=== PATIENT | male | born 1965 | race Caucasian/White ===

== ENCOUNTER → 2017-06-16 06:50 | Day surgery (SDC) | payer BC ==
[~2017-06-16 06:50] MED LIST: Atracurium* 10 MG/ML 10 ML VIAL ONE; Buffered Lidocaine 0.9% SYRIN* 5 ML/SYR SYRINGE INTRADERM ONE; Buffered Lidocaine 0.9% SYRIN* 5 ML/SYR SYRINGE ONE; Bupivacaine 0.5% SDV PF* 30 ML VIAL ONE; EPINEPHrine AMP 1 MG/ML ONE; Famotidine IV* 10 MG/ML 2 ML (20 mg) IV ONE; Famotidine IV* 10 MG/ML 2 ML (20 mg) ONE; KETAMINE HCL* 50 MG/ML 10 ML VIAL ONE; Lidocaine 2% PF * 5 ML VIAL ONE; Metoprolol Tartrate IV* 1 MG/ML 5 ML VIAL ONE; Midazolam* 1 MG/ML 10 ML VIAL (10 MG) ONE; Morphine INJ* 2 MG/ML 1 ML CARPUJECT IV PRN; Ondansetron INJ* 2 MG/ML VIAL ONE; PROCHLORPERAZINE INJ 5 MG/ML 2 ML VIAL IV PRN; PROCHLORPERAZINE INJ 5 MG/ML 2 ML VIAL ONE; Phenylephrine INJ* 10 MG/ML 1 ML VIAL (10 MG) ONE; Propofol* 10 MG/ML 20 ML BTL IV PUSH ONE; Scopolamine 1.5 mg* PATCH TRANSDERM PRN; Scopolomine PATCH Remove* 1 NOTE MISC PATCH OFF ONE; ceFAZolin 2 GM PREMIX (*) 50 ML IVPB ONE; fentaNYL* 50 MCG/ML 2 ML VIAL (100 MCG VIAL) IV PRN; fentaNYL* 50 MCG/ML 2 ML VIAL (100 MCG VIAL) ONE; oxyCODONE/Acetamin 5/325 MG* TAB PO PRN
[2017-06-16 15:03] VITALS: BP 107/82
--- NOTE | 2017-06-18 04:59 | OP ---
DATE OF OPERATION: 06/16/17 [facility] DATE OF : 67 SURGEON: Raffi Mcnair MD DARKLIGHT INSPECTOR: LATRICAI Hager. A physician medical office receptionist assistant was required during the length of the procedure for instrumentation. ANESTHESIOLOGIST: Dr. Alvino Jack. ANESTHESIA: General endotracheal anesthesia, regional interscalene block anesthesia. PRE-OP DIAGNOSES: 1. Left shoulder partial thickness rotator cuff tear, supraspinatus, high grade versus moderate grade, under-sided. 2. Left shoulder subacromial impingement and bursitis. 3. Left shoulder acromioclavicular joint arthritis. POST-OP DIAGNOSES: 1. Left shoulder partial thickness rotator cuff tear, supraspinatus, high grade , under-sided. 2. Left shoulder subacromial impingement and bursitis. 3. Left shoulder acromioclavicular joint arthritis. 4. No left shoulder biceps tendinosis or unstable labral tear, superior. OPERATIVE PROCEDURE: 1. Left shoulder arthroscopic rotator cuff repair, supraspinatus. 2. Left shoulder arthroscopic subacromial decompression. 3. Left shoulder arthroscopic distal clavicle resection. ANTIBIOSIS: 2 g Ancef IV. IV FLUIDS: 1300 cc crystalloid. COMPLICATIONS: None. ESTIMATED BLOOD LOSS: Minimal. SPECIMEN: None. IMPLANTS: Mitek Healix triple-loaded 5.5 mm rotator cuff anchor x1. Healix knotless 5.5 mm suture anchor x1. 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 The patient responded insufficiently to nonoperative management and opted for surgery. Prior to surgery, discussed evaluation and treatment of the rotator cuff tendon , supraspinatus with repair to be a more likely then simple debridement. I did not add it to the surgical consent, but briefly discussed in clinic that, as is the case with every shoulder arthroscopy, I would carefully examine the biceps tendon and superior labrum intraoperatively. On the date of surgery, we discussed this and the patient stated that he would prefer a tenodesis should the biceps need to be treated. I therefore added to the surgical consent evaluation and treatment of the biceps tendon with a tenodesis if treatment were to be performed. Discussed risks and complications of procedure including bleeding, infection, nerve or blood vessel injury, rotator cuff retear, shoulder stiffness. DESCRIPTION OF PROCEDURE: Surgical consent was signed in preoperative holding. Operative extremities marked in preoperative holding. Interscalene block was performed in preoperative holding by anesthesiologist. The patient was placed in the lateral decubitus position on operating room table. Anesthesiologist had hoped for laryngeal mask airway placement, but the patient vomited. The patient was then placed in the supine position and had an endotracheal tube placed. The patient was then placed in a lateral decubitus position with the left shoulder facing upwards. All bony prominences were padded. Beanbag was inflated. Axillary roll had been placed. The left upper extremity was placed in 15 pounds of traction with the left arm in a position approximately 35 degrees abducted and 15 degrees flexed. When the patient was in the supine position prior to being placed in lateral decubitus position, I performed an examination under anesthesia, which showed 180 degrees of forward flexion, 90 degrees of external rotation and 90 degrees of internal rotation with the shoulder in an abductor position. With the patient now in the lateral decubitus position and with the left arm in traction, the left shoulder was prepped with ChloraPrep. The left shoulder was draped. Surgical time-out was performed. A spinal needle was entered from posterior into the left glenohumeral joint. A 30 cc of normal saline were infused. A posterior glenohumeral joint portal was established using standard technique. A diagnostic arthroscopy was commenced. I immediately visualized a high grade partial thickness tear in the supraspinatus tendon. I did not visualize any unstable articular cartilage defects in the glenoid of the humeral head. There were some scuffs on the glenoid superiorly likely from the spinal needle. There was a possibility of a superior labral tear, but the biceps anchor and the biceps tendon looked without any clear tear or tendinosis. I examined well the subscapularis and there seemed to be some fraying, but there was no clear tear. I visualized it with my medical office receptionist assistant producing posterior translation in the humeral head followed by external rotation and then internal rotation. An anterior left glenohumeral joint portal was established using under direct visualization, my standard technique. An arthroscopic shaver was entered from anterior. This cleared the fluid and improved visualization. I next probed the subscapularis and confirmed that there was no tear. I shaved just at the tiniest bit of frayed tissue on the top of the subscapularis. I next probed the biceps, pulling of biceps into the joint with the arthroscopic shaver. I then used the arthroscopic probe to probe the superior labrum. It did not lift off anywhere near 5 mm or peel back to the base of the superior rim. Therefore, I decided the biceps and superior labrum did not require treating. I had also looked inferiorly and no loose bodies were present. I then inspected the rotator cuff tear. I shaved some frayed tissues. There was clearly over 6 mm of exposed footprint, more likely close to 10 mm. I used the probe and my shaver as a proxy for length measurements. I then placed a spinal needle from exterior to tavon the partial thickness rotator cuff tear. I removed all instruments except for the spinal needle from the glenohumeral joint. I next entered the subacromial space from posterior and anterior. I placed a 7 mm Mitek disposable cannula anteriorly with the flow, saline, attached. There was bursitis present in the subacromial space. I created a lateral subacromial portal and introduced a shaver into it and debrided the bursitic tissue about the subacromial space, opening up the gutters as was the space superior to the supraspinatus. I then debrided the undersurface of the acromion with a vapor electrocautery device. I visualized the location of the spinal needle. I removed that and probed the tissue about the spinal needle with an arthroscopic probe. My probe was easily able to puncture through the thin veil of intact rotator cuff tissue superiorly. I next introduced my arthroscopic shaver into that hole to better define the tear. I created a posterolateral portal under direct visualization and then placed my arthroscope into that portal to improve my visualization of the rotator cuff tear. Working through the lateral portal with my arthroscopic shaver, I took down the thin superior whisp of rotator cuff tissue and better defined the rotator cuff tendon tear. The rotator cuff tendon tear appeared crescent in shape. With a solid grasper, I was able to regress it nicely to bone without any dog ears or anything similar anteroposterior. This tear did not quite reach the anterior most supraspinatus tissue as the biceps was visible, but was not directly adjacent to the tear and the tissue. I decided to perform this repair with the Expressew device rather than the MONO device. The size of the tear and my probing with a spinal needle anterolateral seemed to indicate that I would be able to reach all desired tissues for stitch placement. I placed my scope posteriorly and performed through the direct lateral portal a subacromial decompression using an arthroscopic be. There was only minimal spurring about the anterior acromion, more so medial than lateral. I took perhaps 4 mm of bone more lateral and may be 6 mm of bone more medial, opening the space up nicely. I next placed my scope in the posterolateral portal, and under direct visualization, I created an anterolateral subacromial portal that was best position to allow an Expressew device to work. I placed a new 7 mm Mitek cannula into that portal site. I, next from superolaterally, placed an Mitek Healix triple loaded suture anchor into the supraspinatus footprint, approximately third of the way from the medial to lateral on the footprint. I then used the Expressew device for the anterolateral cannula to place 3 horizontal mattress stitches. I next attempted to tie the middle stitch first. The stitch broke when I was pushing down my first knot. Therefore I removed this middle of the 3 sutures. I next tied down the other 2 horizontal mattress stitches. This led to a good repair. I probed the repair and there was not quite watertight right in the middle where the middle horizontal mattress stitch would have been. Therefore, I decided to place a lateral row anchor. I cleared off the lateral most aspect of the footprint with an arthroscopic shaver and a vapor device. I placed a knotless Mitek Healix suture anchor with 4 sutures from my medial row. I then assessed the repair. At this point, it was watertight. It was clearly stable when I rotated the humerus and it was stable to probing with my arthroscopic probe. However, there was just a tiny bit of a rotator cuff tissue up in the air and I thought I might appose even more additional tissue by using the added stitch in that lateral row anchor. Therefore, I placed a simple stitch using a MONO suture passer from posterior. I did not grab a significant amount of tissue with this stitch. It was less a structural stitch in more just to improve the amount of tissue apposed bone as the repair had already been from. With the subacromial decompression and rotator cuff repairs complete, I turned my attention to the AC joint. I debrided some bursitic tissue in that joint with the arthroscopic shaver. Then, working from anterior, I debrided with the arthroscopic be 8 mm of the distal end of the clavicle. All 4 corners were well visualized and resection was comprehensive. All instruments and fluid removed from the subacromial space. Skin incisions were closed with [id number] stitches using nylon 4.0 suture , Xeroform, 4 x 4, ABDs, foam tape. Cooling unit. Sling with abduction pillow. DISPOSITION: The patient was extubated and transferred to the PACU. He was discharged home when medically stable. He was kept several additional hours because of some sleep apnea concerns. Patient was to follow up with me in 10 to 14 days postoperative. He will receive aspirin for DVT prophylaxis and Percocet for pain control. He expressed an interest in earlier physical therapy and so we prescribed him physical therapy. [id number]/[facility] #: [id number] OLMAN
== END | disposition home or self-care (01) ==
LOC: OR 06:50
PROVIDERS: ATTEND Orthopaedic Surgery
DX: S46.012A Strain of muscle(s) and tendon(s) of the rotator cuff of left shoulder, initial encounter (principal); M19.012 Primary osteoarthritis, left shoulder; M75.42 Impingement syndrome of left shoulder; X50.9XXA Other and unspecified overexertion or strenuous movements or postures, initial encounter; Y92.9 Unspecified place or not applicable; M10.9 Gout, unspecified; I10 Essential (primary) hypertension; E78.00 Pure hypercholesterolemia, unspecified; Z87.891 Personal history of nicotine dependence; G47.30 Sleep apnea, unspecified
CPT/HCPCS: A9270-GY; J0171; J0690; J0780; J2250; J2405; J2704; J3010